=== PATIENT | male | born 1970 | race Caucasian/White ===

== ENCOUNTER 2019-05-15 07:18 | Day surgery (SDC) | payer OTHER ==
[2019-05-13 09:28] VITALS: BMI 34.9
[2019-05-15] MEDS ORDERED: LIDOCAINE 1%-EPI 1:100,000 30 ML MDV IJ ONE (07:45)
[2019-05-15] MEDS ORDERED: BUPIVACAINE HCL/PF 0.5% (5 MG/ML) 30 ML VIAL IJ ONE ×2 (07:45)
[2019-05-15] MEDS ORDERED: oxyCODONE HCL 5 MG TABLET PO PRN ×2 (07:55)
[2019-05-15] MEDS ORDERED: ONDANSETRON 4 MG/2 ML VIAL IVPUSH PRN (07:55)
[2019-05-15] MEDS ORDERED: LACTATED RINGERS SOLUTION 1,000 ML IV SCH (08:00)
--- NOTE | 2019-05-15 08:07 | HP ---
[facility]ellite [facility] - Chief Complaint Chief Complaint: left knee pain - Past Medical History Allergies/Adverse Reactions: Allergies Allergy/AdvReac Type Severity Reaction Status Date / Time No Known Allergies Allergy Verified 05/15/19 07:55 - Current Medications Current Medications: Home Medications Medication Instructions Recorded Acetaminophen [Tylenol 1,000 mg PO Q4H 05/13/19 .Extra-Strength -] Clonazepam [Klonopin] 1 mg PO DAILY 05/13/19 Cyclobenzaprine HCl [Flexeril -] 10 mg PO BID 05/13/19 Metformin HCl [Glucophage] 500 mg PO BID 05/13/19 Methadone [Dolophine -] 170 mg PO DAILY 05/13/19 Sertraline HCl [Zoloft] 150 mg PO HS 05/13/19 Naproxen [Naprosyn -] 500 mg PO BID #60 tablet 05/15/19 Satellite Physical Exam - Physical Examination Vital Signs: Vital Signs Period Temp Pulse Resp BP Sys/Azevedo Pulse Ox Last 24 Hr 98.6 F 72 18 130/63 98 General Appearance: Well Nourished, Well Developed, Alert & Oriented x3 ENT: Clear Lung: Normal air movement Heart: Regular rate & rhythm Extremities: Other (left knee- + swelling, + ttp, decr rom, +mcmurrays, nvi, MRI + mmt, OA) Neurological: Intact, Alert, Oriented Satellite Impression/Plan - Impression/Plan Impression: left knee internal derangement Operative Procedure: left knee arthroscopy Date to be Performed: 05/15/19
[2019-05-15] MEDS ORDERED: DEXAMETHASONE SOD PHOSPHATE 4 MG/1 ML VIAL ONE (08:29)
[2019-05-15] MEDS ORDERED: MIDAZOLAM HCL 2 MG/2 ML SINGLE DOSE VIAL ONE (08:30)
[2019-05-15] MEDS ORDERED: PROPOFOL 20 ML ONE ×3 (08:30)
[2019-05-15] MEDS ORDERED: SUCCINYLCHOLINE CHLORIDE 200 MG/10 ML SYRINGE ONE (08:32)
[2019-05-15] MEDS ORDERED: ceFAZolin SODIUM 1 GM VIAL IVPB ONE (08:55)
[2019-05-15] MEDS ORDERED: ceFAZolin SODIUM 1 GM VIAL ONE (08:57)
[2019-05-15] MEDS ORDERED: ACETAMINOPHEN 1000 MG/100 ML VIAL (NON FORMULARY) IVPB ONE (09:15)
[2019-05-15] MEDS ORDERED: ACETAMINOPHEN INJECTION 100 ML IVPB ONE (09:48)
--- NOTE | 2019-05-15 10:01 | OP ---
DATE OF OPERATION: 05/15/2019 PREOPERATIVE DIAGNOSIS: Internal derangement, left knee. POSTOPERATIVE DIAGNOSIS: Internal derangement, left knee. PROCEDURE: Arthroscopy, left knee with chondroplasty of the patella. SURGICAL ATTENDING: Shamir Pratt MD ANESTHESIA: General with LMA. CLOSURE: 4-0 nylon. COMPLICATIONS: None. CONDITION: Recovery in stable condition. DESCRIPTION OF OPERATIVE PROCEDURE: Patient taken to the operating room on May 15, 2019. General anesthesia with LMA was administered by the anesthesiologist. IV Kefzol was administered prophylactically prior to the case. Medial and lateral infrapatellar portal sites were infiltrated with 1% Xylocaine with epinephrine. The 2 portals were then made with a 15 blade followed by blunt trocar. Scope was placed up in the lateral infrapatellar portal and up into the suprapatellar pouch. Using the port on the trocar, the knee was inflated with 10 mL of 1% Xylocaine, 10 mL of 0.5% Marcaine, and 20 mL of arthroscopic saline. After allowing the anesthetic to work inside the knee, the procedure was performed. The pouch was visualized to be clean. The medial and lateral gutters had just some loose fluid and debris which were washed out of the knee both medially and laterally. The undersurface of the patella was visualized to the have a large, grade 4 area on its lateral facet. The rest of the patella showed grade 2-3 changes, and his articular cartilage was debrided using the shaver. The trochlea itself also had some grade 2-3 changes, but no full-thickness cartilage loss; any loose articular cartilage debrided using the shaver. With valgus stress on the knee, medial compartment was entered. Medial meniscus visualized, probed, and found to be intact. The medial femoral condyle was found to basically be intact, as was the medial tibial plateau. In the figure-4 position, the lateral compartment was entered. The lateral meniscus visualized, probed, found to be intact. Lateral femoral condyle was found to be intact as well as the lateral tibial plateau. At 90 degrees, the ACL was visualized and probed, found to be intact. Knee was flushed out with a great amount of arthroscopic fluid and drained. The portals were closed. Then, the knee was inflated with 20 mL of 0.5% Marcaine. A sterile pressure dressing was placed on the knee. The patient was awakened from anesthesia and transferred to recovery in stable condition. No complication. Estimated blood loss negligible. Esau [id number]
--- NOTE | 2019-05-15 10:27 | OP ---
Operative Note - Note: Operative Date: 05/15/19 ([facility]) Pre-Operative Diagnosis: left knee internal derangement Operation: left knee arthroscopy with debridement chondroplasty patella Post-Operative Diagnosis: Same as Pre-op Surgeon: Shamir Pratt Anesthesia: General, Local Specimens Removed: shavings Estimated Blood Loss (mls): 5 Operative Report Dictated: Yes
[2019-05-15 10:37] VITALS: TEMP 97.4
[2019-05-15 11:37] VITALS: BP 120/70; PULSE 66
--- NOTE | 2019-05-17 11:39 | PATH ---
Surgical Pathology Report Patient Name: ANITA TAMEZ [facility]. Rec. #: [id number] /Age/Gender: 1970 (Age: 48) / M Account: [id number] Location: [facility] SURGICAL Taken: 05/15/2019 Received: 05/15/2019 Reported: 05/17/2019 Physicians: Shamir Pratt M.D. Specimen(s) Received LEFT KNEE SHAVINGS Clinical History Left knee internal derangement Final Diagnosis LEFT KNEE SHAVINGS: FRAGMENTS OF FIBROSYNOVIAL TISSUE AND CARTILAGINOUS TISSUE WITH FOCAL FIBROSIS AND DEGENERATIVE CHANGE. Electronically Signed Arnoldo Ma M.D. Gross Description Received in formalin, labeled "left knee shavings" are multiple white, irregular portions of soft tissue measuring 4.0 x 4.0 x 0.2 cm in aggregate. Tank Operator portions are submitted in one cassette. ANDREW/05/15/2019 rianna/05/15/2019
== END 2019-05-15 11:30 | disposition home or self-care (01) ==
LOC: MERGE 07:18 → JASU-SURG 07:18
PROVIDERS: ATTEND Orthopaedic Surgery
PROC: 0SBD4ZZ Excision of Left Knee Joint, Percutaneous Endoscopic Approach (ICD-10-PCS; 2019-05-15)
PROC: 0SBD4ZZ Excision of Left Knee Joint, Percutaneous Endoscopic Approach (ICD-10-PCS; principal; 2019-05-15 08:00)
DX: M23.92 Unspecified internal derangement of left knee (principal); M25.862 Other specified joint disorders, left knee
CPT/HCPCS: 29877; G0289; 82962; 88304-TC; 94760; J0131